=== PATIENT | male | born 1995 | race Two or more races ===

== ENCOUNTER 2019-07-10 09:31 | Emergency (ER) | payer SELFPAY ==
[~2019-07-10] VITALS: Ht 180.3 cm; Wt 79.4 kg
[~2019-07-10 09:31] MED LIST: DIVA125T12
[2019-07-10 09:45] VITALS: BP 138/84
[2019-07-10] MEDS ORDERED: KETOROLAC TROMETH 60MG/2ML VIAL IM ONE (11:00)
== END 2019-07-10 11:25 | disposition home or self-care (01) ==
LOC: ER 09:31
DX: S39.012A Strain of muscle, fascia and tendon of lower back, initial encounter (principal); V43.52XA Car driver injured in collision with other type car in traffic accident, initial encounter; Y93.89 Activity, other specified; Y99.8 Other external cause status; Y92.410 Unspecified street and highway as the place of occurrence of the external cause
CPT/HCPCS: 72100; 96372; 99283; J1885

== ENCOUNTER 2022-02-03 18:12 | Emergency (ER) | payer BC ==
[~2022-02-03] VITALS: Ht 182.9 cm; Wt 83.9 kg
[2022-02-03] MEDS ORDERED: DexAMETHasone SOD PHOS 10MG/1ML VIAL INJ IM ONE (19:30)
[2022-02-03] MEDS ORDERED: AMOX500C2 PO (19:49)
[2022-02-03 20:20] VITALS: BP 127/74
== END 2022-02-03 20:20 | disposition home or self-care (01) ==
LOC: ER 18:17
DX: J02.9 Acute pharyngitis, unspecified (principal)
CPT/HCPCS: 96372; 99283; J1100

== ENCOUNTER 2024-09-15 08:06 | Emergency (ER) | payer BC ==
[~2024-09-15] VITALS: Ht 180.3 cm; Wt 82.0 kg
[~2024-09-15 08:06] MED LIST changes: +AMOX500C2 PO; -DIVA125T12; +DIVA125T30
--- NOTE | 2024-09-15 08:54 | DVH ---
PROCEDURE: Right hip radiographs. INDICATION: Right hip pain TECHNIQUE: 3 views of the right hip were obtained. COMPARISON: None FINDINGS: There is no evidence of fracture or dislocation. Joint spaces are maintained. The soft tis sues are unremarkable. IMPRESSION: 1. No fracture or dislocation.
[2024-09-15] MEDS ORDERED: GABA300T4 PO (09:02)
[2024-09-15] MEDS ORDERED: IBUP1TAB5 PO (09:02)
--- NOTE | 2024-09-15 09:02 | ED.PDOC ---
Musculoskeletal HPI Comments 29-year-old male patient presents to the emergency room for right hip pain. Patient reports that he was cleaning out his garage yesterday. Patient states that he had some soreness to the right hip. Patient went to bed. Patient reports that when he woke up this morning she felt a popping sensation in the right hip and now has pain from the right hip radiating down the back of the leg to the right knee. Patient denies any numbness or tingling. Patient ambulates but is experiencing pain with ambulation. Chief Complaint: Lower Extremity Time Seen by MD: 08:28 Primary Care Provider: none Reviewed Notes: Nurses Notes, Medications Allergies: Coded Allergies: NO KNOWN ALLERGIES (Unverified , 07/10/19) Home Meds Active Scripts Prednisone (Prednisone) 20 Mg Tab, 40 MG PO DAILY for 5 Days, #10 TAB 0 Refills Prov:REHAN BARNES [facility] 09/15/24 Ibuprofen Micronized (Ibuprofen) 600 Mg Tab, 600 MG PO TID PRN for 30 Days, #90 TAB 0 Refills Prov:REHAN BARNES [facility] 09/15/24 Gabapentin (Once-Daily) (Gabapentin) 300 Mg Tab, 300 MG PO TID PRN for 21 Days, #63 TAB 0 Refills Prov:[facility]AN [facility] 09/15/24 Amoxicillin Trihydrate (Amoxicillin) 500 Mg Cap, 500 MG PO BID for 10 Days, #20 CAP Prov:JAYY REYES MD 02/03/22 Reported Medications Divalproex Sodium (Depakote) 125 Mg Tab 09/11/11 Information Source: Patient Mode of Arrival: Ambulatory Past Medical History PAST MEDICAL HISTORY: Denies Surgical History: Denies all surgeries Family History Family History: No family hx of DM, No family hx of Heart hillary Social History Smoker: Non-Smoker Alcohol: Denies ETOH Use Drugs: Denies Drug Use Lives In: Home Constitutional: denies: chills, diaphoresis, fatigue, fever, malaise, sweats, weakness, others EENTM: denies: blurred vision, double vision, ear bleeding, ear discharge, ear drainage, ear pain, ear ringing, eye pain, eye redness, hearing loss, mouth pa in, mouth swelling, nasal discharge, nose bleeding, nose congestion, nose pain, photophobia, tearing, throat pain, throat swelling, voice changes, others Respiratory: denies: cough, hemoptysis, orthopnea, SOB at rest, shortness of breath, SOB with excertion, stridor, wheezing, others Gastrointestinal: denies: abdomen distended, abdominal pain, blood streaked bowels, constipated, diarrhea, dysphagia, difficulty swallowing, hematemesis, melena, nausea, poor appetite, poor fluid intake, rectal bleeding, rectal pain, vomiting, others Genitourinary: denies: burning, dysuria, flank pain, frequency, hematuria, incontinence, penile discharge, penile sore, pain, testicle pain, testicle swelling, urgency, others Neurological: denies: dizziness, fainting, headache, left sided numbness, left sided weakness, numbness, paresthesia, pre-existing deficit, right sided numbness, right sided weakness, seizure, speech problems, tingling, tremors, weakness, others Musculoskeletal: reports: joint pain (Right hip) Integumetry: denies: bruises, change in color, change in hair/nails, dryness, laceration, lesions, lumps, rash, wounds, others Allergic/Immunocompromised: denies: Difficulty Healing, Frequent Infections, Hives, Itching, others Hematologic/Lymphatic: denies: anemia, blood clots, easy bleeding, easy bruising, swollen glands, others Endocrine: denies: excessive hunger, excessive sweating, excessive thirst, excessive urination, flushing, intolerance to cold, intolerance to heat, unexplained weight gain, unexplained weight loss, others Psychiatric: denies: anxiety, bipolar disorder, depression, hopeless, panic disorder, schizophrenia, sleepless, suicidal, others All Other Systems: Reviewed and Negative Physical Exam General Appearance: No Apparent Distress, Normal HEENT: Normal ENT Inspection, Pharynx Normal, TMs Normal Neck: Full Range of Motion, Non-Tender, Normal, Normal Inspection Respiratory: Chest Non-Tender, Lungs Clear, No Accessory Muscle Use, No Respiratory Distress, Normal Breath Sounds Cardiovascular: No Edema, No JVD, No Murmur, No Gallop, Normal Peripheral Pulses, Regular Rate/Rhythm Breast Exam: Deferred Gastrointestinal: No Organomegaly, Non Tender, No Pulsatile Mass, Normal Bowel Sounds, Soft Genitalia: Deferred Pelvic: Deferred Rectal: Deferred Extremities: No calf tenderness, Normal capillary refill, Normal inspection, Normal range of motion, Non-tender, No pedal edema, Pelvis stable, Tender (Patient has tenderness to the right buttocks radiating downwards on the back of the right thigh to the knee) Musculoskeletal : Location: Right Extremity Location: Hip (Tenderness to palpation to the posterior portion of the right hip in the upper buttocks area), Thigh (Tenderness on the posterior portion of the right thigh no swelling or inflammation noted) Apperance: Normal 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 Was a procedure done?: No Differential Diagnosis EXT Differential Diagnosis: Sprain, Dislocation, Contusion, Strain X-Ray, Labs, Meds, VS Vital Signs Date Time Temp Pulse Resp B/P (MAP) Pulse Ox O2 Delivery O2 Flow Rate FiO2 09/15/24 09:34 98.7 77 17 117/67 (84) 97 98.7 09/15/24 09:34 77 17 97 Room Air 09/15/24 08:23 98.8 74 17 115/64 (81) 96 Current Medications Medications (Trade) Dose Ordered Sig/Radhika Route Start Time Stop Time Status Last Admin Gabapentin (Neurontin Capsule) 300 mg ONCE ONCE PO 09/15/24 09:00 09/15/24 09:01 DC 09/15/24 09:03 Prednisone 40 mg ONCE ONCE PO 09/15/24 09:00 09/15/24 09:01 DC 09/15/24 09:07 PATIENT: KANCHAN MURRELLT: [id number]: [id number] : 1995 LOC: ER ROOM / BED: / AGE / SEX: 29 / M ADM STATUS: REG ER SERVICE 7 ORDERING PHYSICIAN: REHAN BARNES PROCEDURE(s): RHIP - R HIP COMPLETE XRAY REASON: Right hip pain ORDER NUMBER(s): [id number], ACCESSION NUMBER(s): [id number] PROCEDURE: Right hip radiographs. INDICATION: Right hip pain TECHNIQUE: 3 views of the right hip were obtained. COMPARISON: None FINDINGS: There is no evidence of fracture or dislocation. Joint spaces are maintained. The soft tissues are unremarkable. IMPRESSION: 1. No fracture or dislocation. ATED BY: FAVIOLA JON MD DICTATED DATE/TIME: 09/15/24850 SIGNED BY: FAVIOLA JON MD SIGNED DATE/TIME: 09/15/24850 CC: X-Ray, Labs, Meds, VS Comment On re-evaluation patient has symptomatic improvement. Patient is stable for discharge at this time. All test results and diagnostic imaging have been interpreted. All diagnostic findings, discharge care, and education instruction provided to the patient. Follow-up with PCP in 2-3 days Patient verbalized understanding, discharge instructions and agrees to treatment plan Vital signs are stable Patient is ambulatory Patient advised of which symptoms necessitate a return visit to the emergency room. Patient to return emergency room for any new worsening symptoms. Patient is aware that the purpose of this visit is for an acute medical emergency requiring emergent stabilization. Chronic conditions, including malignancies have not been ruled out. Patient is instructed to follow up with PCP as directed for continued care and workup. If unable to arrange follow up, patient is to return to the emergency room for reassessment. Patient was given verbal and written discharge instructions and acknowledges understanding Time of 1ST Reevaluation: 09:20 Reevaluation 1ST: Improved Patient Education/Counseling: Diagnosis, Treatment, Prognosis Family Education/Counseling: Diagnosis, Treatment, Prognosis Departure 1 Departure Time of Disposition: 09:20 Impression: Primary Impression: Sciatica of right side Disposition: HOME / SELF CARE / HOMELESS Condition: Stable e-Prescriptions Prednisone (Prednisone) 20 Mg Tab 40 MG PO DAILY for 5 Days, #10 TAB 0 Refills Prov: BARBREHAN Carnes [employer] 09/15/24 Ibuprofen Micronized (Ibuprofen) 600 Mg Tab 600 MG PO TID PRN for 30 Days, #90 TAB 0 Refills Prov: BARBREHAN Carnes [facility] 09/15/24 Gabapentin (Once-Daily) (Gabapentin) 300 Mg Tab 300 MG PO TID PRN for 21 Days, #63 TAB 0 Refills Prov: BARBREHAN Carnes [employer] 09/15/24 Discharged With: Self, Other (Patient reports that he has a family member here that will be driving him home.) Critical Care Note Critical Care Time?: No Stability Stability form required: No Heart Score Heart Score: Heart Score Response (Comments) Value History N/A 0 EKG N/A 0 Age N/A 0 Risk Factors N/A 0 Troponin N/A 0 Total 0 REHAN BARNES [facility] Sep 15, 2024 09:02
[2024-09-15] MEDS: GABAPENTIN 300 MG CAP PO ONE (09:03)
[2024-09-15] MEDS: predniSONE 20 MG TAB PO ONE (09:07)
[2024-09-15] MEDS ORDERED: PRED20TA2 PO (09:31)
[2024-09-15 09:34] VITALS: BP 117/67; PULSE 77; RESP 17; TEMP 98.7; O2SAT 97
== END 2024-09-15 09:36 | disposition home or self-care (01) ==
LOC: ER 08:06
DX: M54.31 Sciatica, right side (principal); M25.551 Pain in right hip; M79.604 Pain in right leg; M25.561 Pain in right knee; Z79.899 Other long term (current) drug therapy
CPT/HCPCS: 73502; 99283; J7512